=== PATIENT | female | born 1995 | race Two or more races ===

== ENCOUNTER 2024-07-20 16:19 | Inpatient (IN) | payer MEDICAID, SELFPAY ==
[2024-07-20 16:20] VITALS: BMI 41.1
[2024-07-20 17:02] VITALS: BP 133/92; PULSE 73; RESP 18; TEMP 37.2; O2SAT 98; BMI 39.1
--- NOTE | 2024-07-20 17:08 | XR_ITS ---
Examination: Pelvic ultrasound, transabdominal, complete Technique: Transabdominal ultrasound of the pelvis performed using grayscale imaging Date and time of exam: July 20, 2024 1705 hrs. Indications: Vaginal bleeding beginning 5 days ago Findings: Uterus 9.0 cm endometrial stripe 0.3 cm No uterine mass or intrauterine gestation Right ovary obscured by bowel gas Left ovary 2.6 cm arterial flow Impression: No uterine or adnexal mass
--- NOTE | 2024-07-20 17:08 | PD.EDRME ---
Rapid Medical Screening Exam RME Arrival date/time: 07/20/24 16:19 29-year-old female history of PCOS not sexually active presents the emergency department complains of vaginal swelling and pain Chief Complaint: Vaginal Bleeding Vital signs: Vital Signs Temperature 98.9 F 07/20/24 17:02 Pulse Rate 73 07/20/24 17:02 Respiratory Rate 18 07/20/24 17:02 Blood Pressure 133/92 H 07/20/24 17:02 Pulse Oximetry (%) 98 07/20/24 17:02 Oxygen Delivery Method Room Air 07/20/24 17:02
[2024-07-20 17:37] LABS: Basophils # (Auto) 0.1 Thou/mm3 (0.0-0.2); Basophils % (Auto) 1 % (0-2.5); Eosinophils # (Auto) 0.1 Thou/mm3 (0.0-0.5); Eosinophils % (Auto) 1 % (0-10); Hematocrit 26.3 % (36.0-46.0); Immature Granulocytes % (Auto) 0 % (0-0); Immature Granulocytes Auto 0.02 Thou/mm3 (0.00-0.00); Lymphocytes # (Auto) 2.4 Thou/mm3 (1.0-4.8); Lymphocytes % (Auto) 30 % (10-50); Mean Corpuscular HGB Conc 24.7 g/dl (31.0-37.0); Mean Corpuscular Hemoglobin 14.6 pg (25.0-35.0); Mean Corpuscular Volume 59 fL (80-100); Monocytes # (Auto) 0.5 Thou/mm3 (0.0-0.8); Monocytes % (Auto) 7 % (0-12); Neutrophils # (Auto) 4.8 Thou/mm3 (1.8-7.7); Neutrophils % (Auto) 61 % (37-80); Nucleated Red Blood Cell % 0 /100 WBC (0); Platelet Count 498 Thou/mm3 (140-440); RDW Standard Deviation 42.1 fL (36.4-46.3); Red Blood Count 4.46 Miln/mm3 (4.00-5.20); White Blood Count 7.9 Thou/mm3 (3.6-11.0)
[2024-07-20 17:59] LABS: Hemoglobin 6.5 g/dL (12.0-16.0)
[2024-07-20 18:03] LABS: Path Review Blood Smear Sent to Pathologist
[2024-07-20 18:04] LABS: Alanine Aminotransferase 7 U/L (10-49); Albumin, Serum 4.5 gm/dL (3.5-5.0); Albumin/Globulin Ratio 1.4 (1.2-2.2); Alkaline Phosphatase 58 U/L (46-116); Anion Gap 7 (7-16); Aspartate Amino Transferase 16 U/L (0-34); BUN/Creatinine Ratio 23 Ratio (12-20); Bilirubin,Total 0.6 mg/dL (0.3-1.2); Blood Urea Nitrogen 14 mg/dL (9-23); Calcium 8.9 mg/dL (8.3-10.6); Calcium (Corrected) 8.9 mg/dL (8.5-10.1); Carbon Dioxide 24.5 mMol/L (20.0-31.0); Chloride 109 mMol/L (98-107); Creatinine (Component) 0.6 mg/dL (0.6-1.3); Estimated Creatinine Clearance 159.1 mL/min (>60); Globulin 3.2 gm/dL (2.3-3.5); Glucose 107 mg/dL (74-106); Lipase 37 U/L (12-53); Osmolality,Calculated 279 (275-295); Sodium 140 mMol/L (136-145); Total Protein 7.7 gm/dL (5.7-8.2); eGFR > 60 See Note
[2024-07-20 18:43] LABS: Collection Type, Urine Clean Catch
[2024-07-20 18:52] LABS: HCG Qualitative,Urine Negative
[2024-07-20 18:53] LABS: Bilirubin,Urine Negative (Negative); Blood,Urine 2+ (Negative); Clarity,Urine Clear (Clear/Hazy); Color,Urine Yellow (Lt Yel-Yel); Culture Indicated,Urine Not Indicated; Glucose, Urine Negative (Negative); Ketones,Urine 1+ (Negative); Leukocyte Esterase,Urine Negative (Negative); Nitrite,Urine Negative (Negative); Protein,Urine Trace (Neg - Trace); RBC,Urine 264 /hpf (0-3); Specific Gravity,Urine 1.027 (1.001-1.035); Squamous Epithelial Cell,Urine 2 /hpf (0-5); Urobilinogen,Urine Negative mg/dL (0.0-1.0); WBC,Urine 10 /hpf (0-5)
[2024-07-20 19:49] VITALS: BP 125/81; PULSE 60; RESP 17; TEMP 36.8; O2SAT 100
[2024-07-20] MEDS: ONDANSETRON ODT 4 MG TABRAP PO (21:08)
[2024-07-20] MEDS: KETOROLAC INJ 30 MG/ML VIAL IM (21:10)
[2024-07-21] VITALS (18 sets, daily range): BP systolic 100–135; BP diastolic 56–81; PULSE 47–78; RESP 12–20; TEMP 36.6–37.7; O2SAT 95–100
--- NOTE | 2024-07-21 | XR_ITS ---
Examination: MRI brain without intravenous contrast. Date and time of exam: July 21, 2024 1520 hrs. Indications: CT stroke alert today, onset focal neurologic deficit Technique: Multiple axial and sagittal images of the brain obtained. Siemens high-resolution 1.5 Gracie short bore scanners utilized. Sagittal sections, T1-weighted, TR 500, TE 14, are performed. Axial sections proton-density and T2-weighted have been obtained. Inversion recovery axial images, TR 9, 260, TE 111, TI 2500. Diffusion weighted images, axial sections, TR 4800, TE 128, B value 1000 Axial sections, ADC map, TR 4800, TE 128 Findings: Enlargement of the sella turcica is not present. The optic chiasm and infundibular are not remarkable. Prepontine and interpeduncular cisterns are not enlarged. There is no localized enlargement of the medulla or luz elena. Fourth ventricle and cerebellar tonsils appear normal in position. No subacute area of hemorrhage density is seen. Mass in the cerebellopontine angle region is not evident. Globes symmetrical. Orbital musculature including medial lateral rectus muscles do not exhibit abnormality. Diffusion-weighted images demonstrate no focus of restricted diffusion. Increased white matter signal affecting scattered punctate foci increased signal in the parietal white matter, for instance FLAIR image 15 Mass effect upon the ventricular system is not identified. Impression: Suspicious for demyelinating disease
--- NOTE | 2024-07-21 00:40 | EDNOTE_ITS ---
ED OB Contraction Preg RMI/HPI General Chief complaint: Vaginal Bleeding Stated complaint: SWELLING TO PELVIS, VAGINAL BLEEDING, HX OF PCOS Time Seen by Provider: 07/20/24 20:43 Source: patient Arrival date/time: 07/20/24 16:19 Mode of arrival: ambulatory Limitations: no limitations RME / HPI RME / HPI Narrative: 07/20/24 16:19 29-year-old female history of PCOS not sexually active presents the emergency department complains of vaginal swelling and pain. Dr. Hernandez?s Main ED Evaluation: 29-year-old female with a history of menometrorrhagia and polycystic ovary syndrome presents to the ED with pelvic swelling and persistent vaginal bleeding for the past three days. She describes ongoing heavy bleeding without signs of improvement. She also reports fatigue. No mention of dizziness, syncope, or clot passage at this time. She seeks further evaluation and management. Patient has been changing her pad 5-6 times a day for the last few days. Patient is currently on control pill. Related Data Home Medications ?Medication ?Instructions ?Recorded ?Confirmed loratadine 10 mg tablet (Claritin) 10 mg PO QDAY 09/1603/03/22 ondansetron 4 mg disintegrating 4 mg PO QDAY PRN n/v 1 03/03/22 tablet norethindrone 1.5 mg-ethinyl 1 tab PO QDAY 03/03/22 estradiol 30 mcg(21)/iron 75 mg(7) tablet (Microgestin Fe 1.5/30 (28)) Previous Rx's ?Medication ?Instructions ?Recorded ibuprofen 800 mg tablet 800 mg PO Q8H PRN pain #30 t abs 02/23/22 cyclobenzaprine 5 mg tablet 5 mg PO TID PRN muscle spa sm #21 03/03/22 tabs hydrocodone 7.5 mg-acetaminophen 1 tab PO Q4H PRN pain #30 tabs 03/03/22 325 mg tablet ondansetron HCl 8 mg tablet 8 mg PO Q8H PRN nausea and 03/03/22 vomiting #30 tabs Allergies Allergy/AdvReac Type Severity Reaction Status Date / Time No Known Allergies Allergy Verified 07/20/24 16:20 Review of Systems Review of Systems Systems Reviewed: All systems reviewed, normal except as documented Past Medical History Past Medical History NEUROLOGIC: Negative Seizures CARDIAC: Negative Cardiac Disorders or Congestive Heart Failure RESPIRATORY: Negative Chronic Obstructive Pulmonary Disease (COPD) or Asthma GENITOURINARY: Negative Renal Disease ENDOCRINE: Negative Diabetes Mellitus Type 1 or Diabetes Mellitus Type 2 HEMATOLOGIC: Negative Sickle Cell Disease OTHER HISTORY: Negative Blood Transfusions, Blood Transfusion Reaction or Anesthesia Reactions Social History SMOKING STATUS: Never smoker Past Medical History Comments PMH COMMENT: PCOS ED Exam Narrative Physical exam: GENERAL: In general the patient is awake, interactive, in an emergency department gurney. HEAD/EYES/EARS/NOSE/THROAT: normo-cephalic, atraumatic, mucus membranes are moist. No cervical tenderness palpation midline. Supple neck. CARDIOVASCULAR: regular rate and regular rhythm, no murmurs, heart sounds are not distant, strong pulses in all four extremities that are equal and symmetric bilateral upper and lower extremities, normal capillary refill. CHEST/PULMONARY: normal chest rise and fall, good air movement, clear to aus cultation bilaterally, normal inspiratory to expiratory ratios without evidence of respiratory distress. ABDOMEN: soft, not tender, no masses appreciated BACK: normal range of motion without pain. NEUROLOGICAL: cranio-facial features are symmetric, moves all four extremities equally without obvious limitations or weakness. PELVIC: Female community health coordinator present. NO. No blood in vault, No Tenderness, No CMT EXTREMITY: no tenderness to palpation over the long bones or large joints of the bilateral upper and lower extremities, no joint swelling, no joint erythema, no signs of trauma, no unilateral leg swelling and no peripheral edema. SKIN: warm, dry, well-perfused, no jaundice, no rash, no telangiectasias or petechia. PSYCH: calm, cooperative, no evidence of psychosis or agitation General Limitations: Present no limitations Course Quality Measures none Orders Category Date Time Status CT Screening NOW Care 07/21/24 04:55 Active Post Transfusion H&H X1 Care 07/21/24 01:18 Completed Transfuse,blood/blood products ONCE Care 07/21/24 00:[address] abdomen pelvis w con Stat Exams 07/21/24 04:54 Ordered US pelvic complete Stat Exams 07/20/24 17:08 Completed CBC Stat Lab 07/20/24 17:17 Completed Comprehensive Metabolic Panel Stat Lab 07/20/24 17:17 Completed HCG Qualitative,Urine Stat Lab 07/20/24 18:31 Completed Lipase Stat Lab 07/20/24 17:17 Completed Path Review Blood Smear Stat Lab 07/20/24 17:17 Completed Red Blood Cells Stat Lab 07/21/24 00:55 Completed Type and Screen Stat Lab 07/21/24 00:55 Completed UA, C/S IF [Urinalysis, C/S if Indicated] Stat Lab 07/20/24 18:31 Completed Acetaminophen Tab [Tylenol Tab] Med 07/21/24 04:10 Discontinued 650 mg PO X1 ONE Ketorolac Inj [Toradol Inj] Med 07/20/24 17:25 Discontinued 30 mg IM X1 ONE Morphine Inj Med 07/21/24 01:17 Discontinued 2 mg IVP X1 ONE Ondansetron Odt [Zofran Odt] Med 07/20/24 17:25 Discontinued 4 mg PO X1 ONE Tranexamic Acid Inj Med 07/21/24 04:46 Discontinued 1,000 mg IV X1 ONE Vital Signs Vital signs: Vital Signs Temperature 98.9 F 07/20/24 17:02 Pulse Rate 73 07/20/24 17:02 Respiratory Rate 18 07/20/24 17:02 Blood Pressure 133/92 H 07/20/24 17:02 Pulse Oximetry (%) 98 07/20/24 17:02 Oxygen Delivery Method Room Air 07/20/24 17:02 Vaginal Bleeding MDM Narrative MDM Narrative: 0600 [facility]. Past medical, surgical, social and family history reviewed. Vitals and home medications reviewed. Results and treatment plan discussed. They will assume the care of the patient at this time and will follow the patient, pending CT results and repeat CBC. Scribe Attestation: Flakita Nguyễn am scribing for and in the presence of Dr. Hernandez. Provider Notation: Although this document has been carefully reviewed, there may still be some phonetic and other typographical errors. These errors are purely grammatical due to imperfections in the software program and should not be construed in any way to compromise the substance of the patient's medical care during this visit. Patient data External records reviewed:: [facility] previous records Clinical information provided by:: patient Social determinants that could affect healthcare access:: none Patient has the following chronic illnesses:: see PMH How is presenting disease/condition affected by chronic disease/condition?: uneffected by Evaluation data The following diagnostics were reviewed and interpreted by me:: lab results and radiology exam(s) Lab and/or radiology exams considered but not ordered:: na Interpretation Summary: I personally reviewed the radiology data and agree with the radiologist's interpretation. Examination: Pelvic ultrasound, transabdominal, complete Technique: Transabdominal ultrasound of the pelvis performed using grayscale imaging Date and time of exam: July 20, 2024 1705 hrs. Indications: Vaginal bleeding beginning 5 days ago Findings: Uterus 9.0 cm endometrial stripe 0.3 cm No uterine mass or intrauterine gestation Right ovary obscured by bowel gas Left ovary 2.6 cm arterial flow Impression: No uterine or adnexal mass Dictated By: Eligio Gill MD Medications / Prescriptions Medications or Prescriptions considered but not ordered:: na Medication administrations:: Medication Administration History Discontinued Medications Acetaminophen (Acetaminophen 325 Mg Tablet) 650 mg PO X1 ONE Stop: 07/21/24 04:11 Last Admin: 07/21/24 04:14 Dose: 650 mg Documented By: GURVINDER Ketorolac Tromethamine (Ketorolac Inj 30 Mg/Ml Vial) 30 mg IM X1 ONE Stop: 07/20/24 17:26 Last Admin: 07/20/24 21:10 Dose: 30 mg Documented By: TORRI Morphine Sulfate (Morphine Sulf Inj 10 Mg/Ml Vial) 2 mg IVP X1 ONE Stop: 07/21/24 01:18 Last Admin: 07/21/24 01:27 Dose: 2 mg Documented By: GURVINDER Ondansetron HCl (Ondansetron Odt 4 Mg Tabrap) 4 mg PO X1 ONE; Protocol Stop: 07/20/24 17:26 Last Admin: 07/20/24 21:08 Dose: 4 mg Documented By: TORRI Tranexamic Acid (Tranexamic Acid Inj 1,000 Mg/10 Ml Vial) 1,000 mg IV X1 ONE Stop: 07/21/24 04:47 Last Admin: 07/21/24 05:03 Dose: Not Given Documented By: GURVINDER Non-Admin Reason: Cancelled by Provider Comments: per dr. hernandez do not give meds. as above Consultations Consultation(s) initiated? (list below): No Diagnosis Vaginal Bleeding Differential Diagnosis: dysfunctional uterine bleeding, menometrorrhagia and vaginal bleeding Most likely diagnosis given after review of the tests above:: see clinical impression below Admission Indicated Admission indicated?: not indicated Admission Request Was there a request for admission?: No Disposition Plan Disposition Plan: other (specify) (Sign out pending CT and repeat CBC.) Discharge Plan Prescriptions/Referrals Prescriptions/Med Rec: No Action loratadine [Claritin] 10 mg Tablet 10 mg PO QDAY ondansetron 4 mg tablet,disintegrating 4 mg PO QDAY PRN (Reason: n/v) Patient Comments: DISSOLVE 1 TABLET ON THE TONGUE ONCE A DAY ibuprofen 800 mg tablet 800 mg PO Q8H PRN (Reason: pain) Qty: 30 0RF norethindrone-e.estradiol-iron [Microgestin Fe 1.5/30 (28)] 1.5 mg-30 mcg (21)/75 mg (7) tablet 1 tab PO QDAY hydrocodone-acetaminophen 7.5-325 mg tablet 1 tab PO Q4H MDD 6 PRN (Reason: pain) Qty: 30 0RF cyclobenzaprine 5 mg tablet 5 mg PO TID PRN (Reason: muscle spasm) Qty: 21 0RF ondansetron HCl 8 mg tablet 8 mg PO Q8H PRN (Reason: nausea and vomiting) Qty: 30 0RF Referrals: No Primary/Family,Physician [Primary Care Provider] - In 1 week Problem List Clinical Impression: Menometrorrhagia Patient/Caregiver Discharge Instructions Print Language: Bruneian
[2024-07-21] MEDS: MORPHINE SULF INJ 10 MG/ML VIAL 2 MG IVP (01:27)
[2024-07-21] MEDS: ACETAMINOPHEN 325 MG TABLET 650 MG PO (04:14)
--- NOTE | 2024-07-21 04:54 | XR_ITS ---
Examination: CT abdomen with intravenous contrast CT pelvis with intravenous contrast 2-D coronal reconstructions 2-D sagittal reconstructions Date and time of exam:July 21, 2024 0813 hrs. Indications: Pelvic pain lower abdominal pain with vaginal bleeding today. CTDI: vol (mGy) 13.5 DLP: (mGycm) 764 Technique: Multiple axial sections of the abdomen and pelvis have been obtained. 64 slice high-resolution scanner used. 3 mm axial sections have been obtained, post intravenous injection 60 cc Isovue-370 2-D sagittal, coronal reconstructions obtained. Low dose protocols were performed. One or more of the following dose reduction techniques were used; automated exposure control, adjustment of the mA and/or KV according to patient size, use of iterative reconstruction technique. Findings: Diffuse fatty infiltration throughout the liver No gallstones No pancreatic or adrenal mass No renal or ureteral calculi, no hydronephrosis Spleen is not enlarged Aorta normal size No bowel obstruction No pericecal inflammatory change Distended urinary bladder Anteverted small uterus No adnexal mass Impression: No renal or ureteral calculi, no hydronephrosis No CT findings of appendicitis bowel obstruction or diverticulitis Given the patient's presentation, recommend transvaginal pelvic sonography follow-up
[2024-07-21 09:28] LABS: Basophils # (Auto) 0.1 Thou/mm3 (0.0-0.2); Basophils % (Auto) 1 % (0-2.5); Eosinophils # (Auto) 0.1 Thou/mm3 (0.0-0.5); Eosinophils % (Auto) 2 % (0-10); Hematocrit 30.6 % (36.0-46.0); Immature Granulocytes % (Auto) 0 % (0-0); Immature Granulocytes Auto 0.01 Thou/mm3 (0.00-0.00); Lymphocytes # (Auto) 2.1 Thou/mm3 (1.0-4.8); Lymphocytes % (Auto) 32 % (10-50); Mean Corpuscular HGB Conc 26.8 g/dl (31.0-37.0); Mean Corpuscular Hemoglobin 17.3 pg (25.0-35.0); Mean Corpuscular Volume 64 fL (80-100); Monocytes # (Auto) 0.7 Thou/mm3 (0.0-0.8); Monocytes % (Auto) 10 % (0-12); Neutrophils # (Auto) 3.8 Thou/mm3 (1.8-7.7); Neutrophils % (Auto) 56 % (37-80); Nucleated Red Blood Cell % 0 /100 WBC (0); Platelet Count 496 Thou/mm3 (140-440); RDW Standard Deviation 58.8 fL (36.4-46.3); Red Blood Count 4.75 Miln/mm3 (4.00-5.20); White Blood Count 6.7 Thou/mm3 (3.6-11.0)
[2024-07-21 09:55] LABS: Hemoglobin 8.2 g/dL (12.0-16.0)
--- NOTE | 2024-07-21 10:09 | PD.EDADDENDU ---
Emergency Room Addendum Addendum Narrative: Patient was signed out 0600 hrs. for someone who had significant vaginal bleeding over the last couple days. The bleeding is slowed down and stopped today but her hemoglobin was quite low at 6.5 and the patient is feeling weak. 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 [facility] After 2 units of blood the patient is feeling better her posttransfusion hemoglobin is 8.2. She is quite microcytic with MCV of 64. Patient is feeling better but when she stood up she became very wobbly weak we sat her back down and she began to retch a little felt very nauseated became quite pale. Heart rate was in the 70-80 range. She is complaining of some pelvic pain. Notes she was worked up prior to my coming on shift where she had a CT of the abdomen pelvis which was negative and a ultrasound of the pelvis which was normal and there is no uterine mass seen. The reason for the patient's unsteadiness is unclear. Patient got a liter of fluid vital signs were good and reevaluation at approximately 1330 hrs reveals patient can sit on the bed but she moves slowly her legs move without any focal deficits. She has normal reflexes bilateral patellar and Achilles tendon. She has normal sensory in both legs bilaterally her arms move without any difficulty we stood her up for the third attempt this time with me visually present and patient clearly has wobbly legs and appears unsafe to walk requiring 1 person to hold her continuously. I honestly cannot explain this new onset of leg weakness associated with severe anemia that is been transfused who symptoms started before. Discussion is coming. This patient actually had a stroke while she is here causing bilateral wobbly legs. This seems unlikely as it is not focal and unilateral. Does she have some type demyelinating disease or some other condition going on that is not been diagnosed before. Because of this I contact Dr. Braga our neurologist and spoke with her about the case at about 1340 hrs. and her plan is to get an MRI of this patient's brain admit her repeat some labs. I then spoke with the resident Dr. Louis on-call for Dr. Fischer and they will be admitting as the hospitalist service. Physical exam patient alert awake orient x 4 normocephalic nontraumatic scalp. Head neck are unremarkable patient has no nuchal rigidity she has no headache. Lungs are clear to auscultation chest is nontender. Spinal my inspection is normal there is no redness nose no ecchymosis. Abdomen is soft with some vague lower abdominal discomfort and general very benign abdomen. Inspection of the vulva and introitus reveals no abscess no induration there is no active bleeding at this time. Does not appear to be an abscess. Clearly there is no cellulitic or neck Fash going on. Lower extremities are warm and dry. They move with 5 or 5 strength when sitting on the gurney but is mention when you stand and walk her she has very wobbly legs bilaterally with kind of a vacillating oscillating movement as she maintains her tone to stand. Patient be admitted to hospitalist service with Dr. Braga consulting.
[2024-07-21] MEDS: SODIUM CHLORIDE 0.9% 1000 ML 1,000 ML 999 ML IV (12:18)
--- NOTE | 2024-07-21 14:31 | XR_ITS ---
EXAMINATION: CT stroke protocol ORDERING PROVIDER: Ruiz Dueñas MD HISTORY: Weakness TECHNIQUE: CT scanner was used in the volumetric, helical non-contrast acquisition of the head with 2-D and 3-D reformats created on a separate workstation and submitted for interpretation. Institutional dose reducing protocols were utilized. RADIATION DOSE: DLP 1068 mGy-cm COMPARISON: None. FINDINGS: BRAIN: No acute intracranial hemorrhage, mass effect, or midline shift. PARK-WHITE DIFFERENTIATION: Preserved. EXTRA-AXIAL SPACES: No abnormal collection. SULCI: Normal. VENTRICLES: Normal. BASAL CISTERNS: Normal. VESSELS: No hyperdense vessel sign. Mild diffuse decreased density of the dural venous sinuses, however, this is triangular, without convex appearance, and favored to be on the basis of patient's hydration status DURAL VENOUS SINUSES: Symmetric attenuation. POSTERIOR FOSSA: Normal. MASTOID AIR CELLS: Clear. PARANASAL SINUSES: Clear. ORBITS: Normal. BONES: Normal. SCALP: Normal. IMPRESSION: No acute intracranial hemorrhage, mass effect, or midline shift. Study made available for interpretation at 2:47 PM 07/21/2024. Discussed with Dr. Eubanks of the ER via telephone at 2:52 PM 07/21/2024 expressed understanding.
--- NOTE | 2024-07-21 14:46 | XR_ITS ---
EXAMINATION: CT angio stroke protocol ORDERING PROVIDER: Parul Fischer DO HISTORY: Focal neuro deficit, stroke suspected TECHNIQUE: Volumetric helical angiographic phase imaging of the head and neck was obtained after the uneventful administration of 75 cc Isovue-370 via IV. 3-D and 3-D reformats, as well as minute imaging was created on a separate workstation and submitted for interpretation. RADIATION DOSE: DLP 421 mGy-cm COMPARISON: None. FINDINGS: Anterior, middle, posterior cerebral arteries are grossly patent proximally, without aneurysm or large vessel occlusion. Anterior communicating artery is visible without aneurysm. There are probably very small diminutive posterior communicating arteries, with the posterior cerebral arteries dominantly fed from the P1 segments. Superior and anterior inferior cerebellar arteries are approximately patent. Posterior cerebellar arteries are faintly seen. The patient is left vertebral artery dominant. Intracranial vertebrobasilar arteries are present without aneurysm or large vessel occlusion. Major dural venous sinuses are grossly patent. Cervical carotid and vertebral arteries are patent without aneurysm or significant stenosis. Lung apices are clear. Surrounding soft tissues are unremarkable. There is straightening of the normal cervical lordotic curvature which may be positional in the basis of muscle spasm. Bones are otherwise unremarkable. IMPRESSION: 1. No large vessel intracranial occlusion, aneurysm, or high-grade stenosis. 2. No cervical carotid or vertebral artery dissection or high-grade stenosis.
--- NOTE | 2024-07-21 15:08 | PD.TNEURO ---
Tele Neuro Consultation Consultation Date 07/21/24 Most Recent Vital Signs Last Vital Signs Temp 98.8 F 07/21/24 12:07 Pulse 47 L 07/21/24 12:07 Resp 14 07/21/24 12:07 BP 115/73 07/21/24 12:07 Pulse Ox 99 07/21/24 12:07 O2 Del Method Room Air 07/21/24 12:07 Consultation Narrative [facility] TeleNeurology Consult Services Patient Name:???KENRICK SALES Date of :???1995 Date of Service:???07/21/2024 14:37:24 Diagnosis:?I63.89 - Cerebrovascular accident (CVA) due to other mechanism (HCCC) Impression: ?29-year-old female with a past medical history of PCOS presents with 3 days of dizziness and heavy menstrual bleeding. She received a blood transfusion earlier and shortly after developed stuttering speech, shaking in bilateral upper and lower extremities. On evaluation he has postural tremors in the arms and legs, decreased sensation on the right side. ? ?Clinically suspicious for a transfusion reaction however given her decreased sensation focally ?I would recommend obtaining MRI of the brain to rule out ischemic infarct Our recommendations are outlined below. Recommendations: ? Stroke/Telemetry Floor ? Neuro Checks ? Bedside Swallow Eval ? DVT Prophylaxis ? IV Fluids, Normal Saline ? Head of Bed 30 Degrees ? Euglycemia and Avoid Hyperthermia (PRN Acetaminophen) ? Antihypertensives PRN if Blood pressure is greater than 220/120 or there is a concern for End organ damage/contraindications for permissive HTN. If blood pressure is greater than 220/120 give labetalol PO or IV or Vasotec IV with a goal of 15% reduction in BP during the first 24 hours. Sign Out: ? Discussed with Rapid Response Team Advanced Imaging: Advanced imaging has been ordered. Results pending. Metrics: Last Known Well: 07/21/2024 14:40:00 Dispatch Time: 07/21/2024 14:37:24 Arrival Time: 07/21/2024 14:47:39 Initial Response Time: 07/21/2024 14:40:01Symptoms: weakness. Initial patient interaction: 07/21/2024 14:48:00 NIHSS Assessment Completed: 07/21/2024 14:55:36Patient is not a candidate for Thrombolytic. Thrombolytic Medical Decision: 07/21/2024 14:55:37Patient was not deemed candidate for Thrombolytic because of following reasons: Acute bleeding diathesis (increased PTT> 40, PT > 15 OR INR => 1.7). . Stroke severity too mild (non-disabling) . CT head showed no acute hemorrhage or acute core infarct. Primary Provider Notified of Diagnostic Impression and Management Plan on: 07/21/2024 14:56:01 History of Present Illness:Patient is a 29 year old Female. Patient was brought by EMS for symptoms of weakness. 29 year old female with PMH of obesity, PCOS presents with dizziness 3 days ago along with headache. She received blood transfusion earlier and was getting admitted for weakness. She is slow to speak, slurred speech, right arm weakness, tremors in both arms, worse on the right. Past Medical History: ?There is no history of Hypertension ?There is no history of Stroke Medications: No Anticoagulant use? No Antiplatelet use Reviewed EMR for current medications Allergies:? Reviewed Social History: Drug Use: No Family History: There is no family history of premature cerebrovascular disease pertinent to this consultation ROS : 14 Points Review of Systems was performed and was negative except mentioned in HPI. Past Surgical History: There Is No Surgical History Contributory To Today?s Visit Examination: BP(135/87),?Pulse(72), 1A: Level of Consciousness - Alert; keenly responsive?+ 0 1B: Ask Month and Age - Both Questions Right?+ 0 1C: Blink Eyes & Squeeze Hands - Performs Both Tasks?+ 0 2: Test Horizontal Extraocular Movements - Normal?+ 0 3: Test Visual Sullivan - Partial Hemianopia?+ 1 4: Test Facial Palsy (Use Grimace if Obtunded) - Normal symmetry?+ 0 5A: Test Left Arm Motor Drift - No Drift for 10 Seconds?+ 0 5B: Test Right Arm Motor Drift - No Drift for 10 Seconds?+ 0 6A: Test Left Leg Motor Drift - No Drift for 5 Seconds?+ 0 6B: Test Right Leg Motor Drift - No Drift for 5 Seconds?+ 0 7: Test Limb Ataxia (FNF/Heel-Prince) - No Ataxia?+ 0 8: Test Sensation - Mild-Moderate Loss: Less Sharp/More Dull?+ 1 9: Test Language/Aphasia - Normal; No aphasia?+ 0 10: Test Dysarthria - Normal?+ 0 11: Test Extinction/Inattention - No abnormality?+ 0 NIHSS Score:?2 Pre-Morbid Modified Sandra Scale:1 Points = No significant disability despite symptoms; able to carry out all usual duties and activities Spoke with :?ER team This consult was conducted in real time using interactive audio and video technology. Patient was informed of the technology being used for this visit and agreed to proceed. Patient located in hospital and provider located at home/office setting. Patient is being evaluated for possible acute neurologic impairment and high probability of imminent or life-threatening deterioration. I spent total of 50 minutes providing care to this patient, including time for face to face visit via telemedicine, review of medical records, imaging studies and discussion of findings with providers, the patient and/or family. Dr Yesika Thomas [facility] For Inpatient follow-up with [facility] physician please call [facility] at . As we are not an outpatient service for any post hospital discharge needs please contact the hospital for assistance. If you have any questions for the [facility] physicians or need to reconsult for clinical or diagnostic changes please contact us via [facility] at .
[2024-07-21 15:17] LABS: Basophils % (Auto) 1 % (0-2.5); Eosinophils # (Auto) 0.1 Thou/mm3 (0.0-0.5); Eosinophils % (Auto) 2 % (0-10); Hematocrit 32.2 % (36.0-46.0); Immature Granulocytes % (Auto) 0 % (0-0); Immature Granulocytes Auto 0.03 Thou/mm3 (0.00-0.00); Lymphocytes # (Auto) 2.1 Thou/mm3 (1.0-4.8); Lymphocytes % (Auto) 31 % (10-50); Mean Corpuscular HGB Conc 26.7 g/dl (31.0-37.0); Mean Corpuscular Hemoglobin 17.4 pg (25.0-35.0); Mean Corpuscular Volume 65 fL (80-100); Monocytes # (Auto) 0.6 Thou/mm3 (0.0-0.8); Monocytes % (Auto) 8 % (0-12); Neutrophils # (Auto) 3.9 Thou/mm3 (1.8-7.7); Neutrophils % (Auto) 59 % (37-80); Nucleated Red Blood Cell % 0 /100 WBC (0); Platelet Count 448 Thou/mm3 (140-440); RDW Standard Deviation 59.3 fL (36.4-46.3); Red Blood Count 4.95 Miln/mm3 (4.00-5.20); White Blood Count 6.7 Thou/mm3 (3.6-11.0)
[2024-07-21 15:45] LABS: Ferritin 6 ng/mL (7.3-270.7); Iron 25 mcg/dL (50-170); Total Iron Binding Capacity 435 mcg/dL (250-425)
--- NOTE | 2024-07-21 15:50 | ECHO_ITS ---
Transthoracic Echo Report Ht (in): 64 Wt (lb): 228 Exam Location: Portable Status: Emergency Field Specialist: ROZINA Trent^^^^ Indications: Procedure Performed: BP: 120 / 67 HR: 61 Rhythm: Sinus Technical Quality: Technically difficult study FINDINGS Left Ventricle Normal left ventricular size, wall thickness, systolic function with no obvious regional wall motion abnormalities. Normal left ventricular diastolic filling pattern for age. The ejection fraction is visually estimated at 55-60 %. Right Ventricle The right ventricle is normal in size and systolic function. The estimated right ventricular systolic pressure, 19 mmHg. Left Atrium The left atrium is normal by two-dimensional, color flow and Doppler imaging with no structural abnormalities, no thrombus formation present. Right Atrium The right atrium is normal by two-dimensional imaging, color flow and Doppler imaging with no structural abnormalities, no thrombus formation present. Atrial Septum The interatrial septum is normal to color flow Doppler and agitated saline imaging. Aorta The aorta is normal by two-dimensional, color flow and Doppler interrogation. Mitral Valve The mitral valve is normal by two-dimensional, color flow and Doppler interrogation. There is no significant mitral valve regurgitation, stenosis or prolapse. Aortic Valve The aortic valve is trileaflet and normal by two-dimensional, color flow and Doppler interrogation. There is no significant aortic valve regurgitation. Tricuspid Valve There is mild tricuspid valve regurgitation. Pulmonic Valve The pulmonic valve is not well visualized. There is no significant pulmonic valve regurgitation. Vessels The pulmonary artery appears normal. The inferior vena cava pulmonary and hepatic veins appear normal. Pericardium The pericardium is normal by two-dimensional imaging. There is no significant pericardial effusion. CONCLUSIONS indication: stroke work up w/ bubble Normal left ventricular size and function. LVEF 55-60%. RV appears normal with RVSP 20 mmHg. IAS is normal to color flow Doppler and agitated saline imaging. Negative Bubble study Joana Garza (Electronically Signed) Final Date: 23 July 2024 08:54
[2024-07-21 15:52] LABS: Anion Gap 10 (7-16); BUN/Creatinine Ratio 15 Ratio (12-20); Blood Urea Nitrogen 9 mg/dL (9-23); C-Reactive Protein < 0.5 mg/dL (0.0-0.9); Calcium 8.6 mg/dL (8.3-10.6); Carbon Dioxide 19.7 mMol/L (20.0-31.0); Chloride 111 mMol/L (98-107); Creatinine (Component) 0.6 mg/dL (0.6-1.3); Estimated Creatinine Clearance 159.1 mL/min (>60); Glucose 87 mg/dL (74-106); Osmolality,Calculated 278 (275-295); Potassium 3.8 mMol/L (3.4-5.1); Sodium 141 mMol/L (136-145); eGFR > 60 See Note
[2024-07-21 15:53] LABS: Vitamin B12 1032 pg/mL (211-911)
[2024-07-21 15:56] LABS: Hemoglobin 8.6 g/dL (12.0-16.0)
--- NOTE | 2024-07-21 15:59 | ESHP_ITS ---
<Statement entered by Jessie Brown MD - 07/21/24 18:37> I discussed with and supervised the planner intern physician who took care of this patient. I personally saw and examined the patient and discussed the assessment and plan with the entire medicine team, including my attending Dr. Fischer, I agree with the assessment and plan as documented below 29-year-old woman with past medical history of PCOS, morbid obesity, history of migraines with aura, uterine fibroids who came to the ED with chief complaint of vaginal bleed. Patient stated that approximately 3 days ago she started to present profuse vaginal bleeding associated dizziness for which she decided to go to the ED and was found to be anemic with a hemoglobin of 6.5 for which 2 units of PRBCs were transfused and received tranexamic acid for vaginal menorrhagia. patient stated that after the last blood of bleeding she started to present tremors, numbness and tingling's on bilateral upper and lower extremities at that she felt that her legs were wobbly . She also endorsed presenting slow speech. At the ED she was normotensive heart rate 73, saturating 98% on room air, labs were significant for acute anemia with a hemoglobin of 6.9 that up trended 8.2=> 8.[address] was negative for any masses, pelvic ultrasound showed no uterine or adnexal masses as well. Upon internal medicine evaluation at the ER patient was having 3/10 strength in bilateral upper and lower extremities, bilateral lower extremity leg drifting more pronounced on the right leg, sensation preserved on upper and lower extremities, Babinski was negative, [id number] test showed intention tremor, no tongue deviation noted. Due to patient was presenting neurological symptoms concerning of possible stroke, stroke alert was called, CT head without contrast was negative for hemorrhage, mass effect or midline shift. CTA head neck was negative for LVO teleneurology was consulted, MRI brain showed possible demyelinating disease. MACHINE BURRER was consulted for further recommendations. Patient was admitted for further treatment and management rule out stroke vs demyelinating disease? vs transfusional reaction? And acute anemia secondary to menorrhagia. Jessie Brown MD PGY-3 Disclaimer: Despite multiple revisions, due to the dictation software being used, the document bellow may not be free of grammatical errors including phonetic/typographic errors. However, this does not deter from our commitment to providing health care in the patient's best interest in mind. Documentation for date of: 07/21/24 HPI History of Present Illness Chief complaint: Generalized weakness History of present illness: 29-year-old female G0 with past medical history of PCOS, migraine headaches presented to the ED due to profuse vaginal bleeding. Vaginal bleeding started about 3 days ago when arrival to the ED hemoglobin was found to be around 6.5 and was transfused 2 units of PRBCs and TXA. She also reports pain in her hypogastric region associated with her vaginal bleeding. She rarely uses more than 5 pads throughout the night due to bleeding. In the ED patient was unable to tolerate a speculum exam due to vaginal pain. Patient also endorses that she has never been sexually active. She states that she started to develop tremors and numbness and tingling after the second blood transfusion states that symptoms started around the evening of 07/20/2024. Patient also endorsed having trouble speaking/slurring in her voice and decreased sensation on the plantar surface of her feet. She denies fever, chills, chest pain, nausea, vomiting. ED course: Vitals on arrival BP 133/92, heart rate 73, 98% on room air, labs significant for hemoglobin 6.9, platelets 448, chloride 111, bicarb 19.7, vitamin B12 1032, UA was negative for any infection. Abdominal pelvic CT negative, pelvic ultrasound showed no uterine or adnexal mass. Head CT negative. Head neck CTA negative. Teleneurology was also consulted PMHx: As above SxHx: Dilation curettage 2 years ago Social Hx: Denies smoking, denies alcohol use, denies illicit substances FHx: History of Su's palsy, stroke in grandmother at 34 years Review of Systems Review of Systems Narrative Review of Systems: Narrative ROS GENERAL: Denies fevers/chills or diaphoresis. HEENT: Denies headache or visual/hearing changes. Denies nasal discharge. NEURO: + Unusual weakness or difficulty speaking. CARDIO: Denies chest pain or palpitations. PULM: Denies SOB, coughing, or wheezing. GI: + Abdominal pain, denies N/V/C/D/reflux/gas, bright red blood per rectum or melena. Reports having BMs. URO: Denies burning/itching/pain/urinary changes. MSK/EXT/SKIN: Denies joint/skeletal/muscle pain, issues/changes in upper or lower extremities, itchiness, or superficial pain. PSYCH: Cooperative, pleasant mood & affect. The rest of the review of systems is otherwise negative. Exam Vital Signs Temp Pulse Resp BP Pulse Ox O2 Del Method 98.8 F 47 L 14 115/73 99 Room Air 07/21/24 12:07 07/21/24 12:07 07/21/24 12:07 07/21/24 12:07 07/21/24 12:07 07/21/24 12:07 Narrative Exam Physical Exam GENERAL: NAD, AAOx3, obese HEENT: Moist mucosa. Eyes open, symmetrical, & clear CARDIO: Heart RRR, no obvious murmurs PULM: No noted coughing/dyspnea CTA B/L, no R/W/R GI: Abdomen soft, nondistended, pain on palpation hypogastric region. BSx4 SKIN/MSK/EXT: No wounds/rashes/edema/amputations, no pain on palpation. Pedal pulses present B/L NEURO: AAOx3, right upper extremity strength 3 out of 5 strength, left upper extremity 4 out of 5, bilateral lower extremity strength 4 out of 5, numbness and tingling sensation all 4 extremities, able to move all 4 extremities Unable to do [id number] test, patellar reflexes 2 out of 4 Results: Labs 07/21/24 14:45 07/21/24 14:45 Labs: Short CBC 07/20/24 07/21/24 07/21/24 Range/Units 17:17 08:46 14:45 WBC 7.9 6.7 6.7 (3.6-11.0) Thou/mm3 Hgb 6.5 L* 8.2 L D 8.6 L (12.0-16.0) g/dL Hct 26.3 L 30.6 L 32.2 L (36.0-46.0) % Plt Count 498 H 496 H 448 H D (140-440) Thou/mm3 BMP 07/20/24 07/21/24 17:17 14:45 Sodium 140 141 Potassium 4.0 3.8 Chloride 109 H 111 H Carbon Dioxide 24.5 19.7 L BUN 14 9 Creatinine 0.6 0.6 Glucose 107 H 87 Calcium 8.9 8.6 Liver Function 07/20/24 Range/Units 17:17 Total Bilirubin 0.6 (0.3-1.2) mg/dL AST 16 (0-34) U/L ALT 7 L (10-49) U/L Alkaline Phosphatase 58 (46-116) U/L Albumin 4.5 (3.5-5.0) gm/dL Urine 07/20/24 Range/Units 18:31 Urine Color Yellow (Lt Yel-Yel) Urine Clarity Clear (Clear/Hazy) Urine pH 6.0 (5.0-7.0) Ur Specific [place] 1.027 (1.001-1.035) Urine Protein Trace (Neg - Trace) Urine Glucose (UA) Negative (Negative) Quality Measures Quality Measures none Medications Home Medications and Allergies Home Medications ?Medication ?Instructions ?Recorded ?Confirmed ?Type loratadine 10 mg tablet (Claritin) 10 mg PO QDAY 09/1603/03/22 History ondansetron 4 mg disintegrating 4 mg PO QDAY PRN n/v 1 03/03/22 History tablet norethindrone 1.5 mg-ethinyl 1 tab PO QDAY 03/03/22 History estradiol 30 mcg(21)/iron 75 mg(7) tablet (Microgestin Fe 1.5/30 (28)) Allergies Allergy/AdvReac Type Severity Reaction Status Date / Time No Known Allergies Allergy Verified 07/20/24 16:20 Visit Medications Acetaminophen (Acetaminophen 325 Mg Tablet) 650 mg PO Q6H PRN PRN Reason: Fever >101.5 Stop: 08/20/24 15:44 Acetaminophen (Acetaminophen 325 Mg Tablet) 650 mg PO Q6H PRN PRN Reason: PAIN SCALE 1-3 (mild Stop: 08/20/24 15:44 Enoxaparin Sodium (Enoxaparin Sod Inj 40 Mg/0.4 Ml Syringe) 40 mg SC QDAY [facility] Stop: 08/04/24 15:59 Sodium Chloride (Ns) 1,000 mls @ 75 mls/hr IV .[id number] OLE Stop: 08/20/24 15:44 Labetalol HCl (Labetalol Inj 5 Mg/Ml Vial 20 Ml) 10 mg IVP Q4HR PRN PRN Reason: BP>220/110 Stop: 08/20/24 15:49 Ondansetron HCl (Ondansetron Inj 2 Mg/Ml Inj 2 Ml) 4 mg IV Q6H PRN; Protocol PRN Reason: NAUSEA OR VOMITING Stop: 08/20/24 15:44 Pantoprazole Sodium (Pantoprazole 40 Mg Tablet) 40 mg PO QDAY OLE Stop: 08/21/24 08:59 Sennosides (Senna Tablet) 1 tab PO QDAY OLE; Protocol Stop: 08/20/24 15:59 Discontinued Medications Acetaminophen (Acetaminophen 325 Mg Tablet) 650 mg PO X1 ONE Stop: 07/21/24 04:11 Last Admin: 07/21/24 04:14 Dose: 650 mg Sodium Chloride (Ns) 1,000 mls @ 999 mls/hr IV .Q1H1M ONE Stop: 07/21/24 11:34 Last Infusion: 07/21/24 13:16 Dose: Infused Ketorolac Tromethamine (Ketorolac Inj 30 Mg/Ml Vial) 30 mg IM X1 ONE Stop: 07/20/24 17:26 Last Admin: 07/20/24 21:10 Dose: 30 mg Labetalol HCl (Labetalol Inj 5 Mg/Ml Vial 20 Ml) 10 mg IVP X1 PRN PRN Reason: BP>220/110 Stop: 08/20/24 15:49 Morphine Sulfate (Morphine Sulf Inj 10 Mg/Ml Vial) 2 mg IVP X1 ONE Stop: 07/21/24 01:18 Last Admin: 07/21/24 01:27 Dose: 2 mg Ondansetron HCl (Ondansetron Odt 4 Mg Tabrap) 4 mg PO X1 ONE; Protocol Stop: 07/20/24 17:26 Last Admin: 07/20/24 21:08 Dose: 4 mg Tranexamic Acid (Tranexamic Acid Inj 1,000 Mg/10 Ml Vial) 1,000 mg IV X1 ONE Stop: 07/21/24 04:47 Last Admin: 07/21/24 05:03 Dose: Not Given Assessment & Plan Plan 29-year-old female G0 with past medical history of PCOS, migraine headaches, on OCPs presented to the ED due to profuse vaginal bleeding. Vaginal bleeding started about 3 days ago when arrival to the ED hemoglobin was found to be around 6.5 and was transfused 2 units of PRBCs and TXA. She also reports pain in her hypogastric region associated with her vaginal bleeding. She uses more than 5 pads due to bleeding. In the ED patient was unable to tolerate a speculum exam due to vaginal pain. Patient also endorses that she has never been sexually active. She states that she started to develop tremors and numbness and tingling after the second blood transfusion states that symptoms started around the evening of 07/20/2024. Patient also endorsed having trouble speaking/slurring in her voice and decreased sensation on the plantar surface of her feet. She denies fever, chills, chest pain, nausea, vomiting. #CVA rule out #Generalized weakness #? Transfusion reaction Patient presented to the ED due to 3 days of profuse vaginal bleeding In the ED hemoglobin was 6.5 and patient received 2 PRBCs and TXA Per patient after the second transfusion patient started developing numbness and tingling of the bilateral lower extremities As well as decreased strength on bilateral upper extremities She also endorsed some slurred speech In the ED stroke alert was called and teleneurology was consulted found with NIHSS score 2, tPA was not recommended by teleneurology Head CT, head neck CTA negative ? Pending MRI brain ? Neurology Dr Braga consulted, appreciate recommendations ? Labetalol as needed for systolic blood pressure more than 220 ? Seizure precautions ? Neurochecks every 4 hours ? Telemetry ? Head of the bed above 30 degrees ? Speech eval ordered ? Physical therapy ordered ? NS 75 cc/h # Menorrhagia Patient presented to the ED due to 3 days of profuse vaginal bleeding In the ED hemoglobin was 6.5 and patient received 2 PRBCs and TXA Bleeding stopped initially however later, profuse bleeding continued Pelvic ultrasound showed no uterine or adnexal masses ? Follow-up H&H ? D[facility]RO[facility] TECHNICIAN consulted, appreciate recommendations Case discussed with my senior Dr. Brown PGY-[address]Lau Alexis Colon MD PGY-1 Disposition: Telemetry Fluids: NS Feeding: N.p.o. till swallow screen Thrombo prophylaxis: SCDs Gastric Ulcer prophylaxis: Pantoprazole CODE STATUS: Full code Attending Provider Attestation/Addendum Parul Nguyễn, , attest that I was physically present for the cooney portions of the service and evaluated the patient with the resident and I reviewed and discussed the case with the resident and agree with the resident's findings and plans of care as documented above Patient is a 29-year-old female with past medical history of menorrhagia, endometriosis, fibroids, obesity who presented to the ED with complaint of heavy menstrual bleeding for the past 3 days resulting in generalized weakness, fatigue and dizziness. She denied any chest pain or shortness of breath. Upon presentation to the ED patient was found to have a hemoglobin of 6.5. She she received 2 units of PRBCs and TXA. She also reports pain in her lower abdomen associated with her bleeding. She states that she has to go through 5-6 thick pad throughout the night due to the bleeding with frequent changes of her pads throughout the day since they are thinner. Patient has a previous history of D&C about 2 years ago after which she was placed on control and had since had regular periods lasting 4 days until now. Patient follows an [facility] in [place]. She also takes iron supplements. Patient denies being sexually active in her life. She endorsed having recurrence of her bleeding during my evaluation as it had stopped for a few hours. She states that she was unable to tolerate speculum exam in the ED due to pain in her vagina. Due to her endometriosis, she frequently experiences pain, but not to this extent; nor does she have such heavy bleeding. Internal medicine was called for admission after patient was unable to stand or walk. She states that she noted to have tremors since receiving blood transfusion and numbness in her bilateral lower extremities while laying in the gurney in the ED. She states that it started around 10 PM last night. She reports mild pain/discomfort in her lower back due to laying in the gurney. She otherwise denies any trauma, fevers or chills, saddle anesthesia or loss of control of bowel or bladder. She states that she has some trouble speaking/slurring and has some decreased sensation in her feet. Patellar reflexes 2 out of 4 in bilateral lower extremities. Patient endorses having equal sensation in bilateral upper and lower extremities, but reported diminished in terms of her usual sensation as she is usually ticklish. Patient is unable to perform knee to strickland exam due to tremors and is poorly coordinated. She has 3- out of 5 muscle strength in bilateral upper and lower extremities. She her niece was at bedside at time of my evaluation who does not note any changes in her voice or speech currently. A stroke alert was called in ED due to change in muscle strength and coordination. However, CT head was negative for any acute intracranial findings. CTA head and neck was also negative. MRI is currently pending. Will give patient some IV fluids due to receiving IV contrast from CT. Neurology has been consulted. Will work patient up for stroke at this time. Due to menorrhagia, will also consult DARKROOM TECHNICIAN for further recommendations. Will trend H&H. Patient's family history is significant for stroke in her grandmother at 34 years of age, sister with Su's palsy and maternal side of family with history of anemia. She states that her brother also has anemia, but unclear why. She states that the females on her maternal side all suffer from menorrhagia.
[2024-07-21] MEDS: SODIUM CHLORIDE 0.9% 1000 ML 1,000 ML 75 ML IV (16:35)
[2024-07-21 16:41] LABS: Sed Rate (ESR) 32 mm/hr (0-20)
[2024-07-21] MEDS: SENNA TABLET 1 TAB PO (16:52)
[2024-07-21] MEDS: DiphenhydrAMINE ELIX 25 MG/10 ML UDC PO (16:52)
[2024-07-21 17:10] LABS: Magnesium 1.9 mg/dL (1.6-2.6)
[2024-07-21 19:32] LABS: Hematocrit 29.7 % (36.0-46.0)
--- NOTE | 2024-07-21 19:33 | PD.GYNCONS ---
CENTRAL OFFICE REPAIRER SUPERVISOR HPI Data of Consult Requesting Physician: Parul Fischer DO Primary Care Provider: Physician No Primary/Family Consult Narrative History of present illness: Mala is a 29yo virginal G0 with PMhx significant for PCOS, BMI 39 and menorrhagia currently treated with OCP who presented to the ER for heavy menses resulting in fatigue/weakness. She uses OCP as prescribed, taking placebo week each month and her current OCP has well-managed her menorrhagia with no unscheduled bleeding up until 3 days ago when she started bleeding during a non-placebo week. She notes the heaviness of current menstrual flow is reminiscent of what her periods used to be like two to three years ago when they were very heavy. At age 27 she underwent a D&C because she had persistent heavy bleeding that lasted for months. She notes having intentional >100lb weight loss over the past couple years with help from her CENTRAL OFFICE REPAIRER SUPERVISOR doctor who referred her to nutrition and therapy to address eating disorder. When she presented to the ER, Hgb was 6.5 and she was transfused 2 units of pRBCs and treated with TXA. She then began to develop tremors and numbness and tingling after the second blood transfusion. She was unable to walk. She also had trouble speaking/slurring in her voice and decreased sensation on the plantar surface of her feet. Rash developed on her back. Stroke code was called and neurology consulted. She was admitted by internal medicine team for further neurological workup. Patient notes after receiving blood transfusion and TXA her bleeding greatly slowed, but it picked up again in the afternoon and she soaked through a pad. PMHx: As above SxHx: D&C age 27 Social Hx: Denies smoking, denies alcohol use, denies illicit substances FHx: History of Su's palsy, stroke in grandmother at 34 years old cc:: cc: Parul Fischer DO Review of Systems Review of Systems Narrative Review of Systems: Review of Systems Systems Reviewed: All systems reviewed, normal except as documented Constitutional Constitutional: Denies body ache(s), Denies chills, Denies fever(s) and Denies headache(s) Cardiovascular Cardiovascular: Denies chest pain, Denies palpitations, Denies dyspnea and Denies syncope Respiratory Respiratory: Denies cough, Denies dyspnea Gastrointestinal Gastrointestinal: Denies nausea and Denies vomiting Neurologic Neurologic: Denies headache(s), Denies other visual disturbances, Denies syncope and Denies vertigo Meds Home Medications and Allergies Home Medications ?Medication ?Instructions ?Recorded ?Confirmed ?Type loratadine 10 mg tablet (Claritin) 10 mg PO QDAY 09/16/21 03/03/22 History ondansetron 4 mg disintegrating 4 mg PO QDAY PRN n/v 02/23/22 03/03/22 History tablet norethindrone 1.5 mg-ethinyl 1 tab PO QDAY 03/03/22 03/03/22 History estradiol 30 mcg(21)/iron 75 mg(7) tablet (Microgestin Fe 1.5/30 (28)) Allergies Allergy/AdvReac Type Severity Reaction Status Date / Time No Known Allergies Allergy Verified 07/20/24 16:20 Exam - CENTRAL OFFICE REPAIRER SUPERVISOR Vital Signs Temp Pulse Resp BP Pulse Ox O2 Del Method 99.1 F 58 L 12 116/72 100 Room Air 07/21/24 18:45 07/21/24 18:45 07/21/24 18:45 07/21/24 18:45 07/21/24 18:45 07/21/24 18:45 Narrative Exam General: well developed, well nourished, no acute distress, conversant Cardiac: normal heart rate Lungs: breathing without distress Abdomen: soft, non-tender, no rebound or guarding Extremities: obvious shaking of right arm, subtle shaking of right leg NEFG, quick exam of pad (patient changed it 30 minutes prior) revealed only a quarter-size area of menstrual blood CENTRAL OFFICE REPAIRER SUPERVISOR - Results Labs 07/21/24 14:45 07/21/24 14:45 Labs: Short CBC 07/21/24 07/21/24 Range/Units 08:46 14:45 WBC 6.7 6.7 (3.6-11.0) Thou/mm3 Hgb 8.2 L D 8.6 L (12.0-16.0) g/dL Hct 30.6 L 32.2 L (36.0-46.0) % Plt Count 496 H 448 H D (140-440) Thou/mm3 BMP 07/21/24 14:45 Sodium 141 Potassium 3.8 Chloride 111 H Carbon Dioxide 19.7 L BUN 9 Creatinine 0.6 Glucose 87 Calcium 8.6 Impressions Impression: Examination: Pelvic ultrasound, transabdominal, complete Technique: Transabdominal ultrasound of the pelvis performed using grayscale imaging Date and time of exam: July 20, 2024 1705 hrs. Indications: Vaginal bleeding beginning 5 days ago Findings: Uterus 9.0 cm endometrial stripe 0.3 cm No uterine mass or intrauterine gestation Right ovary obscured by bowel gas Left ovary 2.6 cm arterial flow Impression: No uterine or adnexal mass Assessment and Plan Assessment and plan (1) Menorrhagia: Status: Acute Assessment and plan: Mala is a 29yo virginal G0 with PMhx significant for PCOS, BMI 39 and menorrhagia currently treated with OCP who presented to the ER for heavy menses resulting in fatigue/weakness and noted to have severe anemia. First episode of unscheduled bleeding during active part of OCP pack, possibly related to weight loss and a need for change in OCP. Possible transfusion reaction, undergoing neurologic workup. Initial Hgb 6.5, after 2u pRBCs Hgb 8.1. Normal pelvic ultrasound with EMS 0.3cm. Outside Machinist Supervisor recommendations: -I had a long discussion with Mala regarding her diagnosis of PCOS and menorrhagia well-treated with OCP until 3 days ago. She is established with an OBGYN who she will follow up with outpatient once discharged. Given current neurologic workup ongoing, will not given any estrogen-containing treatment or oral TXA. Rx medroxyprogesterone acetate 20mg PO TID for 10 days. -We discussed options to treat menorrhagia in the future to include change in OCP, Mirena IUD, endometrial ablation and hysterectomy. She is virginal and does not have any desire for childbearing, so she is interested in definitive management of her menorrhagia with hysterectomy. She will discuss this further with her established OBGYN (2) Severe anemia: Status: Acute (3) Polycystic ovaries: Status: Acute (4) Transfusion reaction: Status: Acute (1) Menorrhagia Qualifiers: Menorrhagia type: with irregular cycle Qualified Code(s): N92.1 - Excessive and frequent menstruation with irregular cycle (4) Transfusion reaction Qualifiers: Encounter type: initial encounter Qualified Code(s): T80.92XA - Unspecified transfusion reaction, initial encounter
[2024-07-21 19:39] LABS: Hemoglobin 8.1 g/dL (12.0-16.0)
--- NOTE | 2024-07-21 22:00 | PC.NURSE ---
Pt arrived via gurney from ER with cardiac monitoring in place. Pt stated that she was unable to bare weight due to tingling sensation in the legs and feet. Pt was transferred to bed and extra linens removed
--- NOTE | 2024-07-21 22:30 | PC.NURSE ---
pt given warm blankets and microwave meal.
--- NOTE | 2024-07-21 22:40 | PC.NURSE ---
Contacted Dr Gonzalez regarding the Provera not in pxysis. Per Dr Gonzalez it is ok to skip 22:00 dose and start at 6am. Will change orders to start at 0600.
--- NOTE | 2024-07-21 23:40 | PD.VCONSULT1 ---
Telemedicine visit statement This visit was conducted with the use of interactive audio and video telecommunications system that permits real time communication between the patient and the provider. Patient's verbal consent for virtual visit was obtained on 07/21/24 at 2340. Meds Home Medications and Allergies Home Medications ?Medication ?Instructions ?Recorded ?Confirmed ?Type loratadine 10 mg tablet (Claritin) 10 mg PO QDAY 09/16/21 03/03/22 History ondansetron 4 mg disintegrating 4 mg PO QDAY PRN n/v 02/23/22 03/03/22 History tablet norethindrone 1.5 mg-ethinyl 1 tab PO QDAY 03/03/22 03/03/22 History estradiol 30 mcg(21)/iron 75 mg(7) tablet (Microgestin Fe 1.5/30 (28)) Held on 07/22/24. Instructions: Resume on 07/31/24. Hold until finishing medroxyprogesterone Allergies Allergy/AdvReac Type Severity Reaction Status Date / Time No Known Allergies Allergy Verified 07/20/24 16:20 Virtual exam Vital Signs Temp Pulse Resp BP Pulse Ox O2 Del Method 98.7 F 56 L 16 121/76 100 Room Air 07/21/24 20:09 07/21/24 20:09 07/21/24 20:09 07/21/24 20:09 07/21/24 20:09 07/21/24 20:09 Results Labs 07/22/24 09:19 07/22/24 05:41 Labs: Short CBC 07/21/24 07/21/24 07/21/24 Range/Units 08:46 14:45 19:09 WBC 6.7 6.7 (3.6-11.0) Thou/mm3 Hgb 8.2 L D 8.6 L 8.1 L (12.0-16.0) g/dL Hct 30.6 L 32.2 L 29.7 L (36.0-46.0) % Plt Count 496 H 448 H D (140-440) Thou/mm3 BMP 07/21/24 14:45 Sodium 141 Potassium 3.8 Chloride 111 H Carbon Dioxide 19.7 L BUN 9 Creatinine 0.6 Glucose 87 Calcium 8.6
[2024-07-22] VITALS (7 sets, daily range): BP systolic 94–113; BP diastolic 57–74; PULSE 50–83; RESP 16–99; TEMP 36–36.6; O2SAT 95–100
[2024-07-22 02:08] LABS: Hematocrit 27.9 % (36.0-46.0); Hemoglobin 7.7 g/dL (12.0-16.0)
[2024-07-22] MEDS: SODIUM CHLORIDE 0.9% 1000 ML 1,000 ML 75 ML IV (06:08)
[2024-07-22 06:10] LABS: Basophils # (Auto) 0.1 Thou/mm3 (0.0-0.2); Basophils % (Auto) 1 % (0-2.5); Eosinophils # (Auto) 0.2 Thou/mm3 (0.0-0.5); Eosinophils % (Auto) 3 % (0-10); Hematocrit 28.7 % (36.0-46.0); Immature Granulocytes % (Auto) 0 % (0-0); Immature Granulocytes Auto 0.01 Thou/mm3 (0.00-0.00); Lymphocytes # (Auto) 2.8 Thou/mm3 (1.0-4.8); Lymphocytes % (Auto) 43 % (10-50); Mean Corpuscular HGB Conc 26.8 g/dl (31.0-37.0); Mean Corpuscular Hemoglobin 17.4 pg (25.0-35.0); Mean Corpuscular Volume 65 fL (80-100); Monocytes # (Auto) 0.6 Thou/mm3 (0.0-0.8); Monocytes % (Auto) 9 % (0-12); Neutrophils # (Auto) 2.9 Thou/mm3 (1.8-7.7); Neutrophils % (Auto) 44 % (37-80); Nucleated Red Blood Cell % 0 /100 WBC (0); Platelet Count 448 Thou/mm3 (140-440); RDW Standard Deviation 58.4 fL (36.4-46.3); Red Blood Count 4.43 Miln/mm3 (4.00-5.20); White Blood Count 6.6 Thou/mm3 (3.6-11.0)
[2024-07-22 06:24] LABS: Hemoglobin 7.7 g/dL (12.0-16.0)
[2024-07-22 07:02] LABS: Alanine Aminotransferase 7 U/L (10-49); Albumin, Serum 3.6 gm/dL (3.5-5.0); Albumin/Globulin Ratio 1.3 (1.2-2.2); Alkaline Phosphatase 49 U/L (46-116); Anion Gap 7 (7-16); Aspartate Amino Transferase 10 U/L (0-34); BUN/Creatinine Ratio 22 Ratio (12-20); Bilirubin,Total 0.8 mg/dL (0.3-1.2); Blood Urea Nitrogen 11 mg/dL (9-23); Calcium 8.4 mg/dL (8.3-10.6); Calcium (Corrected) 8.7 mg/dL (8.5-10.1); Carbon Dioxide 22.6 mMol/L (20.0-31.0); Chloride 111 mMol/L (98-107); Creatinine (Component) 0.5 mg/dL (0.6-1.3); Estimated Creatinine Clearance 192.2 mL/min (>60); Globulin 2.7 gm/dL (2.3-3.5); Glucose 88 mg/dL (74-106); Magnesium 1.9 mg/dL (1.6-2.6); Osmolality,Calculated 279 (275-295); Potassium 3.6 mMol/L (3.4-5.1); Sodium 141 mMol/L (136-145); Thyroid Stimulating Hormone 0.81 uIU/mL (0.55-4.78); Total Protein 6.3 gm/dL (5.7-8.2); eGFR > 60 See Note
[2024-07-22] MEDS: MEDRoxyPROGESTERone ACET 2.5 MG TABLET 20 MG PO ×2 (08:09→14:53)
[2024-07-22] MEDS: SENNA TABLET 1 TAB PO (08:10)
[2024-07-22] MEDS: PANTOPRAZOLE 40 MG TABLET PO (08:10)
[2024-07-22 09:34] LABS: Hematocrit 29.6 % (36.0-46.0)
[2024-07-22 09:41] LABS: Hemoglobin 8.2 g/dL (12.0-16.0)
--- NOTE | 2024-07-22 11:46 | ESDS_ITS ---
<Statement entered by Rhea Braga MD - 07/22/24 15:59> I discussed with and supervised the leadership intern physician who took care of this patient. I personally saw and examined the patient and discussed the assessment and plan with the entire medicine team, including my attending Dr. Fischer, I agree with most of the assessment and plan as documented below Rhea Braga M.D. PGY-2 Disclaimer: Despite multiple revisions, due to the dictation software being used, the document bellow may not be free of grammatical errors including phonetic/typographic errors. However, this does not deter from our commitment to providing health care in the patient's best interest in mind. Planned Discharge Date 07/22/24 DS: Providers Provider Date of admission: 07/21/24 15:45 Primary care physician: Physician Farzaneh Primary/Family Admitting Provider: Parul Fischer DO Attending Provider on Admission: Parul Fischer DO Consults: 07/21/24 13:59 Consult to Neurology / Tele-Neurology Stat Comment: Consulting Provider: Chris Braga 07/21/24 16:07 Consult to Gynecology Stat Comment: Consulting Provider: Myra Gonzalez 07/21/24 16:48 Referral Physical Therapy Stat Comment: Physician Instructions: Referral Speech Therapy Stat Comment: Attending Provider on DC: Parul Fischer DO Discharging Provider: Alexis Colon MD Anticipated date of discharge: 07/22/24 DS: Diagnosis Problem List Completed Was Problem List Reviewed/Reconciled?: Yes Hospital Course Hospital Course Hospital course: 29-year-old female with past medical history of PCOS, migraine headaches presented to the ED due to profuse vaginal bleeding. On arrival to the ED hemoglobin was found to be around 6.5 and was transfused 2 units of PRBCs and received TXA. In the ED patient was unable to tolerate a speculum exam due to vaginal pain. After receiving the second unit of pRBCs in the evening of 07/20/2024 patient started to develop tremors, numbness and tingling. Patient also endorsed having trouble speaking/slurring in her voice and decreased sensation on the plantar surface of her feet and stroke alert was called. Patient was admitted for CVA workup. During hospital stay patient had CVA workup including Head CT, Head/Neck CTA all which were found to be negative. Brain MRI showed demyelinating disease. In house Neurology, Dr. Braga was consulted and evaluated the patient and reported that likely symptoms are more likely psychological, however patient should follow up with neurology as an outpatient within 2 weeks of discharge and outpatient physical therapy. For the patient's vaginal bleed, BUSINESS FUNCTIONAL ANALYST was consulted and started patient on medroxyprogesterone for 10 days to control her menorrhagia. At this time patient is medically stable for discharge. Follow up with your primary care physician, Dr. Crockett on 07/24/24 at 3PM. Follow up with Neurologist Dr. Braga within 2 weeks of discharge. Follow up with your IMPLEMENTATION SERVICES ANALYST within 2 weeks of discharge for evaluation for possible hysterectomy. You have been prescribed medroxyprogesterone 20mg three times daily x 9 days. Hold your control for the next 9 days, and resume after completing medroxyprogesterone. Continue with your stretching and outpatient Physical therapy. Continue with home medications as prescribed. Should any symptoms recur or worsen patient is instructed to return to the ED. Problem list: #Acute blood loss anemia #Menorrhagia #Suspected Transfusion reaction #PCOS #CVA-ruled out #Tremors, functional (psychologic) tremor vs orthostatic vs demyelinating disease (less likely) Case discussed with my senior Dr. Braga PGY-[address]Lau Alexis Colon MD PGY-1 Status at Discharge Cognitive/behavioral status at discharge: stable Functional status at discharge: independent ambulation Overall status at discharge: patient is progressing back to baseline Time Spent with Patient Time attestation: Total time spent providing and/or coordinating discharge services: 35 Time spent: Greater than 30 minutes Exam Vital Signs Temp Pulse Resp BP Pulse Ox O2 Del Method 97.1 F 54 L 16 97/65 95 Room Air 07/22/24 08:00 07/22/24 08:00 07/22/24 08:00 07/22/24 08:00 07/22/24 08:00 07/22/24 08:00 Narrative Exam Physical Exam GENERAL: NAD, AAOx3, obese HEENT: Moist mucosa. Eyes open, symmetrical, & clear CARDIO: Heart RRR, no obvious murmurs PULM: No noted coughing/dyspnea CTA B/L, no R/W/R GI: Abdomen soft, nondistended, no pain on palpation. BSx4 SKIN/MSK/EXT: No wounds/rashes/edema/amputations, no pain on palpation. Pedal pulses present B/L NEURO: AAOx3, B/L lower extremity weakness-improving Discharge Plan Plan Patient Disposition: HOME (Self Care) Patient condition on transfer: Stable Care Plan Goals: Follow up with your primary care physician, Dr. Crockett on 07/24/24 at 3PM. Follow up with Neurologist Dr. Braga within 2 weeks of discharge. Follow up with your IMPLEMENTATION SERVICES ANALYST within 2 weeks of discharge for evaluation for possible hysterectomy You have been prescribed medroxyprogesterone 20mg three times daily x 9 days Hold your control for the next 9 days, and resume after completing medroxyprogesterone. Continue with your stretching and outpatient Physical therapy. Continue with home medications as prescribed. Should any symptoms recur or worsen patient is instructed to return to the ED. Prescriptions/Referrals Prescriptions/Med Rec: New ferrous sulfate [iron] 325 mg (65 mg iron) tablet 325 mg PO Q OTHER DAY Qty: 20 0RF medroxyprogesterone 10 mg tablet 20 mg PO TID 9 Days Qty: 54 0RF Continued loratadine [Claritin] 10 mg Tablet 10 mg PO QDAY ondansetron 4 mg tablet,disintegrating 4 mg PO QDAY PRN (Reason: n/v) Patient Comments: DISSOLVE 1 TABLET ON THE TONGUE ONCE A DAY ondansetron HCl 8 mg tablet 8 mg PO Q8H PRN (Reason: nausea and vomiting) Qty: 30 0RF Held norethindrone-e.estradiol-iron [Microgestin Fe 1.5/30 (28)] 1.5 mg-30 mcg (21)/75 mg (7) tablet 1 tab PO QDAY Hold Instructions: Resume on 07/31/24. Hold until finishing medroxyprogesterone Discontinued ibuprofen 800 mg tablet 800 mg PO Q8H PRN (Reason: pain) Qty: 30 0RF hydrocodone-acetaminophen 7.5-325 mg tablet 1 tab PO Q4H MDD 6 PRN (Reason: pain) Qty: 30 0RF cyclobenzaprine 5 mg tablet 5 mg PO TID PRN (Reason: muscle spasm) Qty: 21 0RF Referrals: No Primary/Family,Physician [Primary Care Provider] - Patient/Caregiver Discharge Instructions Education Materials: Anemia, ED Heavy Menstrual Bleeding Print Language: Slovenian Stand Alone Forms: Lillie Award Info., Patient Portal Info Letter Discharge Order Discharge Orders: Discharge (Routine); Ordered 07/22/24 Ordered By: Rhea Braga Quality Discharge Quality Measures VTE prophylaxis
--- NOTE | 2024-07-22 23:30 | PD.NEUROPROG ---
Documentation for date of: 07/22/24 Subjective Subjective Interval history: Patient was seen in telemetry at the bedside. She complains of tremors in the right upper and lower extremities and weakness. She denies any headache or dizziness or blurred vision. Exam - Neurology Vital Signs Temp Pulse Resp BP Pulse Ox O2 Del Method 97.1 F 83 18 113/74 100 Room Air 07/22/24 16:00 07/22/24 16:00 07/22/24 16:00 07/22/24 16:00 07/22/24 16:00 07/22/24 16:00 Narrative Exam GENERAL APPEARANCE: Well-developed, obese built female in no acute distress. HEENT: Normocephalic, atraumatic, extraocular movements intact. Pupils: Equal reacting to light and accommodation NECK: Supple, no JVD or bruits. CARDIOVASULAR: Heart: S1, S2 heard, regular without S3-S4 or murmur no rubs or gallops. LUNGS/CHEST: Clear to auscultation bilaterally. No rails, rhonchi, or wheezing. Normal inspection. ABDOMEN: Soft, nontender, with normal bowel sounds. No pulsatile masses. No rebound, rigidity, or guarding. Normal inspection and palpation. EXTREMITIES: Normal inspection and palpation. No edema, clubbing or cyanosis. SKIN: Warm and dry without rashes. Normal inspection. MUSCULOSKELETAL: No cervical, thoracic, lumbar or midline bony tenderness. Normal inspection. NEURO: Alert, awake and oriented x3. Cranial nerves: II through XII grossly intact. Speech and language: Normal with no dysarthria or dysphasia. Motor system: Tone and bulk: Normal: Strength: Moves all 4 extremities; she has giveaway weakness in the right upper and lower extremities with inconsistent tremors. deep tendon reflexes: 2+ bilaterally symmetrical. Plantar reflex: Downgoing bilaterally. Sensory system: Subjective lack of sensation in the right upper and lower extremities. Coordination: Intact to [id number] and [id number] test bilaterally with ataxia, dysmetria and intention tremors noted on the right upper and lower extremities. Gait: She walked with a walker slowly but cautiously without any tremors. no signs of meningeal irritation noted. PSYCHIATRIC: Normal mood but has a flat affect Objective Labs 07/22/24 09:19 07/22/24 05:41 Labs: Laboratory Results - last 24 hr 07/22/24 07/22/24 07/22/24 01:55 05:41 09:19 WBC 6.6 RBC 4.43 Hgb 7.7 L 7.7 L 8.2 L Hct 27.9 L 28.7 L 29.6 L MCV 65 L MCH 17.4 L MCHC 26.8 L RDW Std Deviation 58.4 H Plt Count 448 H Neut % (Auto) 44 Lymph % (Auto) 43 Divide % (Auto) 9 Eos % (Auto) 3 Baso % (Auto) 1 Neut # (Auto) 2.9 Lymph # (Auto) 2.8 Divide # (Auto) 0.6 Eos # (Auto) 0.2 Baso # (Auto) 0.1 Immature Gran # (Auto) 0.01 H Absolute Nucleated RBC 0.00 Immature Gran % 0 Nucleated RBC % 0 Sodium 141 Potassium 3.6 Chloride 111 H Carbon Dioxide 22.6 Anion Gap 7 BUN 11 Creatinine 0.5 L Estim Creat Clear Calc 192.2 eGFR > 60 BUN/Creatinine Ratio 22 H Glucose 88 Calculated Osmolality 279 Calcium 8.4 Corrected Calcium 8.7 Magnesium 1.9 Total Bilirubin 0.8 AST 10 ALT 7 L Alkaline Phosphatase 49 Total Protein 6.3 Albumin 3.6 D Globulin 2.7 Albumin/Globulin Ratio 1.3 TSH 0.81 Assessment & Plan Assessment and plan (1) Bilateral leg weakness: Status: Acute Assessment and plan: Reassurance given to the patient regarding the negative MRI brain and this is unlikely from transfusion reaction. Likely from functional neurological disorder. She is advised to keep walking with support for few days and then she should be back to normal with outpatient physical therapy. Stable for discharge. Will hold off on LP as she does not have any significant findings suggestive of myelopathy on exam. (2) Severe anemia: Status: Acute Assessment and plan: Status post a blood transfusion with improvement in hemoglobin and hematocrit. She did undergo surgery for removal of uterine fibroids before as she continued to have menorrhagia, DIAMOND FINISHING SUPERVISOR added medroxyprogesterone. (3) Polycystic ovaries: Status: Chronic Assessment and plan: On oral contraceptive (4) Transfusion reaction: Qualifiers: Encounter type: initial encounter Qualified Code(s): T80.92XA - Unspecified transfusion reaction, initial encounter Status: Acute Assessment and plan: Unlikely to be transfusion reaction to have inconsistency and fluctuation in extremity weakness
== END 2024-07-22 16:15 | disposition home or self-care (01) | DRG 532 ==
LOC: SERX 07-21 13:58 → SERHOLD 07-21 16:06 → S2NX 07-21 22:04
PROVIDERS: Nurse Practitioner Primary Care; Student in an Organized Health Care Education/Training Program; Admitting Provider Internal Medicine; Emergency Provider Emergency Medicine; Visit Provider Internal Medicine
DX: N92.1 Excessive and frequent menstruation with irregular cycle (principal); T80.92XA Unspecified transfusion reaction, initial encounter; E66.01 Morbid (severe) obesity due to excess calories; E28.2 Polycystic ovarian syndrome; Z68.39 Body mass index [BMI] 39.0-39.9, adult; N80.9 Endometriosis, unspecified; G37.9 Demyelinating disease of central nervous system, unspecified; G43.909 Migraine, unspecified, not intractable, without status migrainosus; D62 Acute posthemorrhagic anemia; R47.81 Slurred speech; R53.1 Weakness; R21 Rash and other nonspecific skin eruption; R25.1 Tremor, unspecified; R26.2 Difficulty in walking, not elsewhere classified; Z79.899 Other long term (current) drug therapy; Z79.3 Long term (current) use of hormonal contraceptives
CPT/HCPCS: 36415; 70450; 70496; 70498; 70551; 74177; 76856; 80048; 80053; 81001; 81025; 82607; 82728; 82746; 83540; 83550; 83605; 83690; 83735; 84443; 85014; 85018; 85025; 85652; 86140; 86850; 86900; 86901; 86923; 87040; 93306; 97162; A4649; J1885; J2270; J7030; P9016; Q0162; Q9967; A9270

== ENCOUNTER 2024-08-25 12:00 | Day surgery (SDC) | payer MEDICAID, SELFPAY ==
[2024-08-22 08:23] LABS: Basophils # (Auto) 0.1 Thou/mm3 (0.0-0.2); Basophils % (Auto) 1 % (0-2.5); Eosinophils # (Auto) 0.2 Thou/mm3 (0.0-0.5); Eosinophils % (Auto) 2 % (0-10); Hematocrit 28.5 % (36.0-46.0); Immature Granulocytes % (Auto) 0 % (0-0); Immature Granulocytes Auto 0.02 Thou/mm3 (0.00-0.00); Lymphocytes # (Auto) 2.1 Thou/mm3 (1.0-4.8); Lymphocytes % (Auto) 27 % (10-50); Mean Corpuscular HGB Conc 27.4 g/dl (31.0-37.0); Mean Corpuscular Hemoglobin 18.2 pg (25.0-35.0); Mean Corpuscular Volume 66 fL (80-100); Monocytes # (Auto) 0.6 Thou/mm3 (0.0-0.8); Monocytes % (Auto) 8 % (0-12); Neutrophils # (Auto) 4.7 Thou/mm3 (1.8-7.7); Neutrophils % (Auto) 62 % (37-80); Nucleated Red Blood Cell % 0 /100 WBC (0); Platelet Count 382 Thou/mm3 (140-440); RDW Standard Deviation 61.2 fL (36.4-46.3); Red Blood Count 4.29 Miln/mm3 (4.00-5.20); White Blood Count 7.6 Thou/mm3 (3.6-11.0)
[2024-08-22 08:32] LABS: INR 1.1 (0.9-1.3); Partial Thromboplastin Time 26.7 Seconds (22.0-36.0); Prothrombin Time 11.8 Seconds (9.0-12.2)
[2024-08-22 08:34] LABS: Hemoglobin 7.8 g/dL (12.0-16.0)
[2024-08-22 08:36] LABS: Alanine Aminotransferase < 7 U/L (10-49); Albumin, Serum 4.1 gm/dL (3.5-5.0); Albumin/Globulin Ratio 1.3 (1.2-2.2); Alkaline Phosphatase 47 U/L (46-116); Anion Gap 8 (7-16); Aspartate Amino Transferase 11 U/L (0-34); BUN/Creatinine Ratio 23 Ratio (12-20); Bilirubin,Total 0.4 mg/dL (0.3-1.2); Blood Urea Nitrogen 14 mg/dL (9-23); Calcium 9.1 mg/dL (8.3-10.6); Calcium (Corrected) 9.1 mg/dL (8.5-10.1); Carbon Dioxide 24.3 mMol/L (20.0-31.0); Chloride 108 mMol/L (98-107); Creatinine (Component) 0.6 mg/dL (0.6-1.3); Globulin 3.1 gm/dL (2.3-3.5); Glucose 101 mg/dL (74-106); Osmolality,Calculated 279 (275-295); Potassium 4.1 mMol/L (3.4-5.1); Sodium 140 mMol/L (136-145); Total Protein 7.2 gm/dL (5.7-8.2); eGFR > 60 See Note
[2024-08-22 08:59] LABS: HCG Qualitative,Urine Negative
[2024-08-25] VITALS (7 sets, daily range): BP systolic 112–131; BP diastolic 56–82; PULSE 67–79; RESP 11–19; TEMP 36.6–36.9; O2SAT 97–99; BMI 37.9
--- NOTE | 2024-08-25 13:02 | SUR.PREOP ---
AND INFORMED OF LOW HEMOGLOBIN RESULT. PER BOTH DOCTORS, IT IS OKAY TO PROCEED WITH PROCEDURE.
[2024-08-25] MEDS: RINGERS LACTATED 1000 ML 1,000 ML 100 ML IV (13:04)
--- NOTE | 2024-08-25 15:09 | SUR.PHASEII ---
1510 - Patient started shaking and crying, apx 1445. Assessed by MD. Likely a reaction to Propofol. Covered with warm blanket. Mom in to sit with her. Passing gas, able to void. States feeling much better. Able to converse with MD. Alert and oriented. Delaying DC at this time per MD.
== END 2024-08-25 15:50 | disposition home or self-care (01) ==
PROVIDERS: PCP Student in an Organized Health Care Education/Training Program; Referring Provider Surgery; Visit Provider Surgery
PROC: 0DBE8ZX Excision of Large Intestine, Via Natural or Artificial Opening Endoscopic, Diagnostic (ICD-10-PCS; CPT 45380; principal; 2024-08-25 13:45)
DX: C19 Malignant neoplasm of rectosigmoid junction (principal); D12.5 Benign neoplasm of sigmoid colon; D12.8 Benign neoplasm of rectum
CPT/HCPCS: 45385; 45380; 36415; 80053; 81025; 85025; 85610; 85730; A4649; J7120

== ENCOUNTER → 2024-08-26 | Outpatient (CLI) | payer MEDICAID, SELFPAY ==
--- NOTE | 2024-08-26 16:08 | XR_ITS ---
Examination: Abdomen series 3 views including upright PA chest Technique: Upright PA chest, AP upright AP supine abdomen 3 views Exam date and time: August 26, 2024 1631 hrs. Indications: Status post abdominal procedure August 25, 2024 Findings: Mild prominence left ventricle No pneumonia or pulmonary edema Air distended small bowel loops No free air Impression: Mildly air distended small bowel loops No free air
== END | disposition home or self-care (01) ==
PROVIDERS: PCP Student in an Organized Health Care Education/Training Program; Referring Provider Surgery; Visit Provider Surgery
DX: K63.89 Other specified diseases of intestine (principal)
CPT/HCPCS: 74019